=== PATIENT | male | born 1990 | race Caucasian/White ===

== ENCOUNTER 2020-08-20 09:48 | Emergency (ER) | payer BC ==
--- NOTE | 2020-08-20 10:02 | EDM.PDOC ---
ED HPI GENERAL MEDICAL PROBLEM - General Chief Complaint: Trauma Stated Complaint: BACK INJURY BUCKED OFF OF A HORSE Time Seen by Provider: 08/20/20 10:02 - History of Present Illness INITIAL COMMENTS - FREE TEXT/NARRATIVE: 30-year-old male presents the emergency room with back pain. Yesterday afternoon the patient was thrown off a horse landing on his back and buttocks. Patient does not think he hit his head he had no loss of consciousness. He is otherwise been doing well besides this back pain. He is used a little bit of ibuprofen without much success. Patient has no loss of bowel or bladder control no pain or numbness extending into his extremities. Right Hip Pain Score (Numeric/FACES): 6 Right Pelvic Pain Score (Numeric/FACES): 6 - Related Data Allergies Allergy/AdvReac Type Severity Reaction Status Date / Time No Known Allergies Allergy Verified 08/20/20 10:05 Home Meds: Home Meds Naproxen [Naprosyn] 500 mg PO BID #20 tab 08/20/20 [Rx] Review of Systems - Review of Systems Review Of Systems: See Below Constitutional: Reports: No Symptoms Respiratory: Reports: No Symptoms Cardiovascular: Reports: No Symptoms GI/Abdominal: Reports: No Symptoms Musculoskeletal: Reports: Back Pain Skin: Reports: No Symptoms Neurological: Reports: No Symptoms ED EXAM, GENERAL - Physical Exam Exam: See Below Exam Limited By: No Limitations General Appearance: Alert, No Apparent Distress Head: Atraumatic, Normocephalic Neck: Normal Inspection, Supple, Non-Tender, Full Range of Motion. No: Lymphadenopathy (L), Lymphadenopathy (R), Tender Lateral, Tender Midline Respiratory/Chest: No Respiratory Distress, Lungs Clear, Normal Breath Sounds Cardiovascular: Regular Rate, Rhythm, No Edema, No Murmur GI/Abdominal: Normal Bowel Sounds, Soft, Non-Tender Back Exam: Normal Inspection, Other (Patient has point tenderness right at the LS articulation area). No: CVA Tenderness (L), CVA Tenderness (R) Extremities: Normal Inspection, No Pedal Edema, Other (Straight leg raises cause localized discomfort in the lower lumbar region otherwise straight leg raises are negative) Neurological: Alert, Oriented, Normal Cognition Course - Vital Signs Last Recorded V/S: Last Vital Signs Temp 36.7 C 08/20/20 10:01 Pulse 60 08/20/20 10:01 Resp 15 08/20/20 10:01 BP 153/98 H 08/20/20 10:01 Pulse Ox 100 08/20/20 10:01 - Re-Assessments/Exams Free Text/Narrative Re-Assessment/Exam: 08/20/20 14:40 Examination of the lumbar spine cervical spine and pelvis and right hip show some degenerative changes no acute the patient is noted to have a transitional segment at the LS joint with degenerative changes noted. The patient will be started on Naprosyn 500 mg twice daily with food. Departure - Departure Time of Disposition: 14:41 Disposition: Home, Self-Care 01 Clinical Impression: Cervical strain, acute, Low back pain, Transitional vertebrae - Discharge Information Prescriptions: Naproxen [Naprosyn] 500 mg PO BID #20 tab Instructions: Cervical Strain and Sprain Rehab-SportsMed Referrals: Santa Hahn PA-C [Primary Care Provider] - Forms: ED Department Discharge Additional Instructions: Return to the emergency room with any questions problems or worsening symptoms. You have been started on Naprosyn take 1 twice daily with meals. Follow-up with your chiropractor or your regular physician to discuss precautions with the transitional segment vertebrae.
--- NOTE | 2020-08-20 13:04 | CR ---
Cervical spine: AP, lateral and odontoid views of the cervical spine were obtained. Comparison: No prior cervical spine imaging. Vertebral body heights and disc spaces are maintained. Minimal anterior osteophytes are noted at C4-C5. Minimal scoliosis is noted within the cervical spine. No subluxation or fracture is seen. Impression: 1. Minimal degenerative change. Slight scoliosis. 2. Nothing acute is appreciated on cervical spine study. Note: If patient has persistent symptoms, CT could then be considered. Diagnostic code #2 Study was dictated in MDT
--- NOTE | 2020-08-20 13:05 | CR ---
Pelvis and right hip: AP view of the pelvis was obtained as well as AP and frog-leg lateral views the right hip. Transitional segment is seen at the lumbosacral junction with pseudoarticulation of an enlarged transverse process to the sacrum. Sclerosis and osteophytes are seen at this area of pseudoarticulation. Mild joint space narrowing is seen within superior right hip. Joint space within the left hip is preserved. Small dysplastic bump is noted off the lateral femoral head. No acute fracture or other abnormality is appreciated. Impression: 1. Transitional segment as noted above. 2. Joint space narrowing within superior right hip. Lateral right femoral head shows a small dysplastic bump. 3. Nothing acute is appreciated. Diagnostic code #3 Study was dictated in MDT
--- NOTE | 2020-08-20 13:15 | CR ---
Lumbar spine: AP and lateral views of the lumbar spine were obtained. Comparison: No prior lumbar spine imaging. Vertebral body heights and disc spaces are maintained. Pedicles are intact. Visualized transverse and spinous processes are intact. Transitional segment is seen at the lumbosacral junction on the right side with pseudoarticulation of an enlarged right transverse process to the sacrum. There is degenerative sclerosis within this area of pseudoarticulation as well as osteophytes. Impression: 1. Partial transitional segment as noted above. 2. 2 view lumbar spine study is otherwise unremarkable. Nothing acute is appreciated. Diagnostic code #2 Study was dictated in MDT
== END 2020-08-20 14:52 | disposition home or self-care (01) ==
LOC: JD.ED 09:48
DX: S16.1XXA Strain of muscle, fascia and tendon at neck level, initial encounter (principal); M54.5 Low back pain; Q76.49 Other congenital malformations of spine, not associated with scoliosis; V80.010A Animal-rider injured by fall from or being thrown from horse in noncollision accident, initial encounter
CPT/HCPCS: 72040; 72040-26; 72100; 72100-26; 73502-26-RT; 73502-RT; 99283-25